=== PATIENT | male | born 1975 | race Caucasian/White ===

== ENCOUNTER → 2017-09-15 10:56 | Outpatient (CLI) | payer BC, SELFPAY ==
--- NOTE | 2017-09-15 10:57 | MR_ITS ---
MR elbow RT wo con HISTORY: Lifting injury with posttraumatic pain in the elbow, biceps tendon tear ITS.REASON: RT distal biceps tendon rupture ORDERING PHYSICIAN: Raman Pablo MD PATIENT AGE: 42 years Comparison: None TECHNIQUE: Standard multiplanar multiecho sequences are performed without contrast. FINDINGS: There is complete tear of the distal aspect of the biceps brachia tendon detached from the radial tubercle and retracted into the antecubital fossa. Increased T2 signal is present in the antecubital fossa consistent with underlying edema. No fracture or dislocation is evident. No obvious ligamentous injury. Small amount fluid is present in the elbow joint. The common extensor tendon and common flexor tendons have an unremarkable appearance. There is a moderate amount of edema in the subcutaneous tissues along the medial aspect of the elbow. IMPRESSION: Complete tear of the distal biceps tendon with retraction of the tendon with edema in the antecubital fossa and subcutaneous edema along the medial aspect of the elbow.
--- NOTE | 2017-09-15 13:54 | XR_ITS ---
XR chest 2V HISTORY: ITS.REASON: H/O NICOTINE DEPENDENCE ORDERING PHYSICIAN: Raman Pablo MD PATIENT AGE: 42 years COMPARISON: None FINDINGS: The cardiomediastinal silhouette and pulmonary vascularity are within normal limits. The lungs are clear without infiltrates, suspicious nodules, or pleural effusions. No acute bony abnormalities. IMPRESSION: Negative chest, no acute finding
[2017-09-15 14:12] LABS: Anion Gap 12.8 mEq/L (5-15); Blood Urea Nitrogen 11 mg/dL (7-18); Calcium 9.5 mg/dL (8.5-10.1); Carbon Dioxide 30 mmol/L (21.0-32.0); Chloride 105 mmol/L (98-107); Creatinine,Serum 1.12 mg/dL (0.70-1.30); Estimated Glomerular Filt Rate 72 ml/min (>60); GFR (African American) 87 ML/MIN (>60); Glucose 102 mg/dL (74-106); Potassium 4.8 mmoL/L (3.5-5.1); Sodium 143 mmol/L (136-145)
[2017-09-15 14:23] LABS: Basophils % 0.3 % (0.1-2.0); Eosinophils # 0.1 K/mm3 (0.0-0.4); Eosinophils % 0.8 % (0.1-12.0); Hematocrit 50.7 % (42.0-52.0); Hemoglobin 17.3 g/dL (14.1-18.0); Lymphocytes # 1.2 K/mm3 (0.7-4.5); Lymphocytes % 18.3 K/mm3 (10-50); Mean Corpuscular HGB Conc 34.2 g/dL (31.8-35.4); Mean Corpuscular Hemoglobin 32.5 pg (27.0-31.2); Mean Corpuscular Volume 95.1 fl (80-94); Mean Platelet Volume 8.1 fl (7.4-10.4); Monocytes # 0.3 K/mm3 (0.1-1.0); Monocytes % 4.4 % (1.7-9.3); Neutrophils # 5.2 K/mm3 (1.8-7.8); Neutrophils % 76.3 % (37.0-80.0); Platelet Count 210 K/mm3 (142-424); Red Blood Count 5.33 M/mm3 (4.60-6.20); Red Cell Distribution Width 12.9 % (11.5-17.5); White Blood Count 6.8 K/mm3 (4.8-10.8)
== END ==
PROVIDERS: Family Provider Family Medicine; PCP Family Medicine; Visit Provider Orthopaedic Surgery
DX: S46.219A Strain of muscle, fascia and tendon of other parts of biceps, unspecified arm, initial encounter (principal)
CPT/HCPCS: 36415; 71046; 73221; 80048; 85025; 93005

== ENCOUNTER 2020-08-13 06:49 | Emergency (ER) | payer BC, SELFPAY ==
[2020-08-13 06:51] VITALS: BP 147/93; PULSE 104; RESP 16; TEMP 37.2; O2SAT 98; BMI 30.1
--- NOTE | 2020-08-13 07:04 | XR_ITS ---
PROCEDURE INFORMATION: Exam: XR Left Foot Exam date and time: 08/13/2020 7:04 AM Age: 45 years old Clinical indication: Cellulitis; Toes; Left; Additional info: Redness of 2nd and 3rd toes TECHNIQUE: Imaging protocol: XR Left foot. Views: 3 or more views. COMPARISON: No relevant prior studies available. FINDINGS: Bones/joints: There is no evidence of acute cortical disruption or dislocation. Soft tissues: Unremarkable. IMPRESSION: No acute findings.
[2020-08-13 07:06] VITALS: BP 138/92; PULSE 90; O2SAT 96
--- NOTE | 2020-08-13 07:57 | HMH.EDGENADL ---
ED Disposition Clinical Impression: Envenomation Disposition: Home, Self-Care Condition on Discharge: Good Referrals: Horacio Correa MD [Primary Care Provider] - 3 days Time of Disposition: 08:23 - Critical Care Critical Care Time: No Attestation: On 08/13/20, the high probability of a clinically significant, sudden or life threatening deterioration of the following system(s) required my full and direct attention, intervention and personal management. The time I documented below is in addition to time spent performing reported procedures but includes the following listed in this critical care notation. Medical Decision Making - Medical Records Medical records reviewed: Yes: I reviewed the patient's medical records. - Travis Inquiry Pt receiving controlled substance: No Vital Signs: 08/13/20 06:51 08/13/20 07:06 Temperature 98.9 F Temperature Source Oral Pulse Rate 90 Pulse Rate [Radial] 104 H Respiratory Rate 16 Blood Pressure 138/92 H Blood Pressure [Right Arm] 147/93 H Blood Pressure Mean [Right Arm] 111 Blood Pressure Position [Right Arm] Sitting 02 Sat by Pulse Oximetry 98 96 Oxygen Delivery Method Room Air Orders (Tests/Meds): ORDERS Category Date Time Status XR foot LT min 3V Stat Exams 08/13/20 07:04 Taken - Radiology Data #1 Image(s): Foot/Toes Image Reviewed: Yes I reviewed the patient's radiology image Preliminary Findings: Normal/NAD Medical Decision Narrative: 45yo M presents for skin changes to his left second and third toe. Patient is in no acute distress on initial evaluation. There is some appreciable swelling and tenderness to the area. Lesion does not helga. There is no additional warmth as compared to the rest of the patient's foot. For these reasons, infection or cellulitis seems less likely. The patient has normal range of motion with minimal discomfort. We will try the patient on topical steroid to calm down local inflammation. Encouraged to follow-up with his PCP in 2 to 3 days for reevaluation. General Adult HPI - General Chief complaint: PAIN Stated complaint: middle toe on left foot swollen,red,painful Time Seen by Provider: 08/13/20 07:57 Mode of Arrival: Ambulatory Limitations: No Limitations Description of Symptoms (Recalled from ER Triage Doc. by RN): TO ED PER [employer] CAR WITH C/O REDNESS, SWELLING, PAIN LT 2ND AND 3RD TOES X 1 WEEK, WORSE LAST NIGHT. PT DENIES ANY NAUSEA, VOMITING, FEVER, CHILLS. - History of Present Illness HPI narrative: 45yo M without significant past medical history reports emergency department secondary to painful discoloration at the base of his second and third left toes. Changes been present for several days. Seems to be worsening. Complains of pain and swelling. Denies any injury. Denies any known bite or envenomation. Denies any fever, nausea/vomit/diarrhea. No previous similar episodes. Nothing improving, nothing tried prior to arrival. - Related Data Home Medications Medication Instructions Recorded Confirmed No Known Home Medications 02/23/18 02/23/18 Allergies Allergy/AdvReac Type Severity Reaction Status Date / Time No Known Allergies Allergy Verified 02/23/18 09:43 [facility] History - Hepatitis A Screen Drug use history?: No High risk sexual behaviors?: No History of sexually transmitted infection?: No Currently employed?: No Childcare worker?: No Do you have indoor plumbing?: Yes Do you have electricity?: Yes Attestation statement:: This patient has been screened for Hepatitis A risk factors. Medical History: Reports:: Hypertension Denies:: Cancer, Diabetes Mellitus Type 1, Diabetes Mellitus Type 2, Internal Pacemaker, Kidney Stones, MRSA, Seizures, Ulcer Other Medical History: Denies: Blood Transfusion Reaction, Other Laterality Cases: Right: Other Other Surgeries: Yes: No Previous Surgery. No: Pacemaker Amputation: No Fractures: No - Social History Smoking Status: Curr
[2020-08-13 08:31] VITALS: BP 132/78; PULSE 98; RESP 16; TEMP 36.6; O2SAT 98
== END 2020-08-13 08:32 | disposition home or self-care (01) ==
PROVIDERS: Emergency Provider Family Medicine; PCP Family Medicine
DX: R22.42 Localized swelling, mass and lump, left lower limb (principal); R23.8 Other skin changes; I10 Essential (primary) hypertension; F41.9 Anxiety disorder, unspecified; Z79.899 Other long term (current) drug therapy
CPT/HCPCS: 73630; 99281; 99282

== ENCOUNTER 2020-08-13 20:34 | Emergency (ER) | payer BC, SELFPAY ==
[2020-08-13 21:06] VITALS: BP 129/89; PULSE 89; RESP 18; TEMP 37.8; O2SAT 100; BMI 26.9
[2020-08-13 21:19] VITALS: BP 148/79; PULSE 85; O2SAT 95
[2020-08-13 21:28] LABS: Basophils % 0.5 % (0.1-2.0); Eosinophils % 0.7 % (0.1-12.0); Hematocrit 43.6 % (42.0-52.0); Hemoglobin 15.6 g/dL (14.1-18.0); Lymphocytes # 0.7 K/mm3 (0.7-4.5); Lymphocytes % 12.6 % (10-50); Mean Corpuscular HGB Conc 35.8 g/dL (31.8-35.4); Mean Corpuscular Hemoglobin 33.1 pg (27.0-31.2); Mean Corpuscular Volume 92.5 fl (80-94); Mean Platelet Volume 8.7 fl (7.4-10.4); Monocytes # 0.3 K/mm3 (0.1-1.0); Neutrophils # 4.5 K/mm3 (1.8-7.8); Neutrophils % 81.2 % (37.0-80.0); Platelet Count 111 K/mm3 (142-424); Red Blood Count 4.71 M/mm3 (4.60-6.20); Red Cell Distribution Width 12.8 % (11.5-17.5); White Blood Count 5.6 K/mm3 (4.8-10.8)
[2020-08-13 21:30] VITALS: PULSE 80; O2SAT 96
--- NOTE | 2020-08-13 21:33 | HMH.EDSKAF ---
ED Disposition Clinical Impression: Insect bite Qualifiers: Encounter type: initial encounter Site of insect bite: foot Laterality: left Qualified Code(s): S90.862A - Insect bite (nonvenomous), left foot, initial encounter; W57.XXXA - Bitten or stung by nonvenomous insect and other nonvenomous arthropods, initial encounter Disposition: Home, Self-Care Condition on Discharge: Good Instructions: DI for Insect Bites and Stings Additional Instructions: use meds and see pcp if sx persist Prescriptions: Minocycline HCl [Minocycline HCl 100mg Tab*] 100 mg PO BID #20 tab [id number] predniSONE [Prednisone 20mg Tab] 20 mg PO BID #10 tab [facility]: [id number] Referrals: Chandler Rubio MD [Primary Care Provider] - - Critical Care Critical Care Time: No Attestation: On 08/13/20, the high probability of a clinically significant, sudden or life threatening deterioration of the following system(s) required my full and direct attention, intervention and personal management. The time I documented below is in addition to time spent performing reported procedures but includes the following listed in this critical care notation. Medical Decision Making - Medical Records Medical records reviewed: Yes: I reviewed the patient's medical records. - Travis Inquiry Pt receiving controlled substance: No Vital Signs: 08/13/20 21:06 08/13/20 21:19 08/13/20 21:30 Temperature 100.1 F H Temperature Source Oral Pulse Rate 80 Pulse Rate [Right] 89 85 Respiratory Rate 18 Blood Pressure [Right Arm] 129/89 148/79 H Blood Pressure Mean [Right Arm] 102 102 Blood Pressure Source [Right Arm] Automatic Cuff Blood Pressure Position [Right Arm] Sitting 02 Sat by Pulse Oximetry 100 95 96 Oxygen Delivery Method Room Air - Lab Data Lab results reviewed: Yes: I reviewed the patient's lab results. Lab Results 08/13/20 21:15: WBC 5.6, RBC 4.71, Hgb 15.6, Hct 43.6, MCV 92.5, MCH 33.1 H, MCHC 35.8 H, RDW 12.8, Plt Count 111 L, MPV 8.7, Neut % (Auto) 81.2 H, Lymph % (Auto) 12.6, [place] % (Auto) 5.0, Eos % (Auto) 0.7, Baso % (Auto) 0.5, Neut # (Auto) 4.5, Lymph # (Auto) 0.7, [place] # (Auto) 0.3, Eos # (Auto) 0.0, Baso # (Auto) 0.0, ESR 43 H 08/13/20 21:15: Sodium 132 L, Potassium 3.3 L, Chloride 98, Carbon Dioxide 24, Anion Gap 13.3, BUN 8 L, Creatinine 1.10, Estimated Creat Clear 114, Estimated GFR 72, Est GFR ( Amer) 88, Glucose 121 H, Calcium 8.6, Total Bilirubin 0.9, AST 38, ALT 52, Alkaline Phosphatase 107, C-Reactive Protein 101.4 H, Total Protein 7.0, Albumin 4.1, Globulin 2.9, Albumin/Globulin Ratio 1.4, Procalcitonin 0.372 08/13/20 21:15: Lactate 0.7 Result diagrams: 08/13/20 21:15 08/13/20 21:15 Orders (Tests/Meds): ED MEDICATIONS Generic Name Dose Route Start Last Admin Trade Name Freq PRN Reason Stop Dose Admin Sodium Chloride 1,000 mls @ 999 mls/hr 08/13/20 21:15 08/13/20 21:21 Sod Chlor 0.9% 1000ml Bag IV 08/13/20 22:15 999 mls/hr .Q1H1M BETTY Administration Vancomycin HCl 1,500 mg/ 250 mls @ 125 mls/hr 08/13/20 22:01 08/13/20 22:12 Sodium Chloride IV 08/14/20 00:00 125 mls/hr ONCE ONE Administration Protocol Miscellaneous 1 each 08/13/20 22:15 08/13/20 22:02 Vancomycin Consult Request * 09/12/20 22:14 1 each CONSULT PHARMACY BETTY Administration Discontinued Medications Generic Name Dose Route Start Last Admin Trade Name Freq PRN Reason Stop Dose Admin Acetaminophen 1,000 mg 08/13/20 21:21 08/13/20 21:22 Acetaminophen 500mg Tab PO 08/13/20 21:22 1,000 mg ONCE ONE Administration Ketorolac Tromethamine 30 mg 08/13/20 21:15 08/13/20 21:22 Ketorolac 30mg/Ml Vial IV 08/13/20 21:16 30 mg ONCE ONE Administration Methylprednisolone Sodium Succinate 125 mg 08/13/20 21:23 08/13/20 21:27 Methylprednisolone Sod Succ 125mg Vial IV 08/13/20 21:24 125 mg ONCE ONE Ad
[2020-08-13 21:34] LABS: Alanine Aminotransferase 52 U/L (12-78); Albumin Level 4.1 g/dl (3.5-5.0); Albumin/Globulin Ratio 1.4 (1.1-1.8); Alkaline Phosphatase 107 U/L (38-126); Anion Gap 13.3 mEq/L (5-15); Aspartate Amino Transferase 38 U/L (17-59); Bilirubin,Total 0.9 mg/dl (0.2-1.3); Blood Urea Nitrogen 8 mg/dl (9-20); Calcium 8.6 mg/dl (8.4-10.2); Carbon Dioxide 24 mmol/L (22.0-30.0); Chloride 98 mmol/L (98-107); Creatinine Clearance Estimated 114 mL/min (50-200); Estimated Glomerular Filt Rate 72 ml/min (>60); GFR (African American) 88 ML/MIN (>60); Globulin 2.9 g/dL (1.3-3.2); Glucose 121 mg/dl (74-100); Potassium 3.3 mmoL/L (3.5-5.1); Sodium 132 mmol/L (136-145)
[2020-08-13 21:37] LABS: Lactic Acid 0.7 mmol/L (0.7-2.1)
[2020-08-13 21:39] LABS: C-Reactive Protein 101.4 mg/L (0-4)
[2020-08-13 21:53] LABS: Procalcitonin 0.372 ng/mL (0.0-2.0)
[2020-08-13 21:58] LABS: Erythrocyte Sedimentation Rate 43 mm/hr (0-15)
--- NOTE | 2020-08-13 22:01 | PC.NURSE ---
spoke with rita @ [facility] for vanc dosage
[2020-08-14 00:20] VITALS: BP 141/72; PULSE 84; RESP 16; TEMP 37.1; O2SAT 96
== END 2020-08-14 00:27 | disposition home or self-care (01) ==
LOC: UTC 20:42 → ER 20:54
PROVIDERS: Emergency Provider Emergency Medicine; PCP Family Medicine
DX: S90.862A Insect bite (nonvenomous), left foot, initial encounter (principal); W57.XXXA Bitten or stung by nonvenomous insect and other nonvenomous arthropods, initial encounter; I10 Essential (primary) hypertension; F17.210 Nicotine dependence, cigarettes, uncomplicated
CPT/HCPCS: 80053; 83605; 84145; 85025; 85651; 86140; 87040; 96365; 96366; 99282; 99283; J3370

== ENCOUNTER 2023-04-15 08:08 | Emergency (ER) | payer BC, SELFPAY ==
[2023-04-15 08:20] VITALS: BP 174/96; PULSE 81; RESP 18; TEMP 36.7; O2SAT 96; BMI 31.5
--- NOTE | 2023-04-15 08:37 | ED_ITS ---
Discharge Plan Disposition Patient Disposition: Home, Self-Care Condition: Good Prescriptions Prescriptions: New prednisone 20 mg tablet 20 mg PO BID Qty: 10 0RF cyclobenzaprine 5 mg tablet 5 mg PO HS Qty: 7 0RF Referrals Follow up/Referrals: Horacio Correa MD [Primary Care Provider] - See instructions Clinical Impressions Clinical Impression: Muscle strain Instructions Patient Instructions: DI for Muscle Strain [facility]charge [facility] General Stated complaint: left side pain Mode of Arrival: Ambulatory Source of Information: Patient Limitations: No Limitations Time Seen by Provider: 04/15/23 08:37 Description of Symptoms (Recalled from Triage Doc. by RN): Pt on mon was working on the house and twisted the wrong way. He has pain on left back side. HEENT Symptoms (Recalled from RN notes): Yes Resp Symptoms (Recalled from RN notes): No Skin Symptoms (Recalled from RN notes): No MS Symptoms (Recalled from RN notes): No Functional Status (Recalled from RN notes): n/a History of Present Illness Provider Complaint: 48 yr old male presents for left flank pain. pt states he was working under the sink and was laying in a bad position and since then the pain has been there. pt states pain worse with movement or cough Related Data Previous Rx's Medication Instructions Recorded cyclobenzaprine 5 mg tablet 5 mg PO HS #7 tabs 04/15/23 prednisone 20 mg tablet 20 mg PO BID #10 tabs 04/15/23 Allergies Allergy/AdvReac Type Severity Reaction Status Date / Time No Known Allergies Allergy Verified 04/15/23 08:35 Worker's Comp Is this a Worker's Comp case?: No [facility] Disclaimer: The information contained in this section may have been updated after the patient was seen, as this information can be updated by other users. Social History , [employer]STRUCTION EQUIPMENT OPERATOR) Smoking Status: Current every day smoker tobacco type: cigarettes packs per day: 1 alcohol intake: current substance use type: denies use current occupational status: employed Travel in the last 8 weeks: None ROS Obtained: Yes All systems reviewed & no additional complaints except as documented Constitutional Constitutional: Reports system reviewed and no additional complaints, except as documented Eyes Eyes: Reports system reviewed and no additional complaints, except as documented ENT Ears, Nose, Mouth, and Throat: Reports system reviewed and no additional complaints, except as documented Cardiovascular Cardiovascular: Reports system reviewed and no additional complaints, except as documented Respiratory Respiratory: Reports system reviewed and no additional complaints, except as documented Gastrointestinal Gastrointestingal: Reports system reviewed and no additional complaints, except as documented Genitourinary Male Genitourinary: Reports system reviewed and no additional complaints, except as documented Musculoskeletal Musculoskeletal: Reports system reviewed and no additional complaints, except as documented, Reports as per HPI, Reports back pain, Reports limited range of motion and Reports myalgias Integumentary/Breasts Skin/Breast: Reports system reviewed and no additional complaints, except as documented Neurologic Neurologic: Reports system reviewed and no additional complaints, except as documented Endocrine Endocrine: Reports system reviewed and no additional complaints, except as documented Hematologic/Lymphatic Henatologic/Lymphatic: Reports system reviewed and no additional complaints, except as documented Allergic/Immunologic Allergic/Immunologic: Reports system reviewed and no additional complaints, except as documented Physical Exam General General appearance: alert and in no apparent distress Head Head exam: atraumatic Eye Eye exam: Present normal appearance and PERRL ENT ENT exam: Present normal exam, normal oropharynx, mucous membranes moist and TM's normal bilaterally Respiratory Respiratory exam: Present normal lung sounds bilaterally Cardiovascular Cardiovascular exam: Present regular rate and normal rhythm Extremities Exam Extremities exam: Present normal inspection Back Exam Back exam: Present normal inspection and tenderness Back 1 view image: 2 1. tender Neurological Exam Neurological exam: Present alert and oriented X3 Skin Skin exam: Present warm and intact Medical Decision Making Medical Records Medical records reviewed: Yes I reviewed the patient's medical records. Travis Inquiry Pt receiving controlled substance: No Travis was queried for this patient: No Vital Signs: 04/15/23 08:20 Temperature 98.0 F Temperature Source Oral Pulse Rate [Right Radial] 81 Respiratory Rate 18 Blood Pressure [Right Arm] 174/96 H Blood Pressure Mean [Right Arm] 122 Blood Pressure Source [Right Arm] Automatic Cuff Blood Pressure Position [Right Arm] Sitting 02 Sat by Pulse Oximetry 96 Oxygen Delivery Method Room Air Orders (Tests/Meds): ED MEDICATIONS Generic Name Dose Route Start Last Admin Trade Name Freq PRN Reason Stop Dose Admin Dexamethasone Sodium Phosphate 4 mg 04/15/23 08:29 Dexamethasone 4mg/Ml 1ml Vial IM 04/15/23 08:30 ONCE ONE Ketorolac Tromethamine 15 mg 04/15/23 08:29 Ketorolac 30mg/Ml Vial IM 04/15/23 08:30 ONCE ONE
[2023-04-15] MEDS: KETOROLAC 30MG/ML VIAL 15 MG IM (08:41)
[2023-04-15] MEDS: DEXAMETHASONE 4MG/ML 1ML VIAL 4 MG IM (08:41)
[2023-04-15 09:02] VITALS: BP 174/96; PULSE 81; RESP 18; TEMP 36.7; O2SAT 96
== END 2023-04-15 09:01 | disposition home or self-care (01) ==
PROVIDERS: Emergency Provider Nurse Practitioner Family; PCP Family Medicine
DX: S39.012A Strain of muscle, fascia and tendon of lower back, initial encounter (principal); F17.210 Nicotine dependence, cigarettes, uncomplicated; X50.1XXA Overexertion from prolonged static or awkward postures, initial encounter
CPT/HCPCS: 96372; 99204; 99212; G0463

== ENCOUNTER 2024-04-12 10:56 | Outpatient (CLI) | payer BC, SELFPAY ==
[2024-04-12 17:34] LABS: Alanine Aminotransferase 41 U/L (12-78); Albumin/Globulin Ratio 2.3 (1.1-1.8); Alkaline Phosphatase 87 U/L (38-126); Anion Gap 11.3 mEq/L (5-15); Aspartate Amino Transferase 28 U/L (17-59); Bilirubin,Total 0.5 mg/dl (0.2-1.3); Blood Urea Nitrogen 17 mg/dl (9-20); Calcium 9.8 mg/dl (8.4-10.2); Carbon Dioxide 27 mmol/L (22.0-30.0); Chloride 104 mmol/L (98-107); Cholesterol 249 mg/dl (140-200); Estimated Glomerular Filt Rate 71 ml/min (>60); GFR (African American) 86 ML/MIN (>60); Globulin 2.2 g/dL (1.3-3.2); Glucose 89 mg/dl (74-100); HDL Cholesterol 50 mg/dl (40-60); Potassium 4.3 mmoL/L (3.5-5.1); Sodium 138 mmol/L (136-145); Total Protein,Serum 7.2 g/dl (6.3-8.2); Triglycerides 288 mg/dl (30-150); VLDL Cholesterol 58 mg/dL (0-40)
[2024-04-12 17:45] LABS: Direct LDL Cholesterol 148.77 mg/dL (100-129)
[2024-04-12 18:04] LABS: Thyroid Stimulating Hormone 1.68 uIU/mL (0.465-4.68)
== END 2024-04-12 23:59 | disposition home or self-care (01) ==
LOC: LAB.DROPOF 04-13 10:56
PROVIDERS: PCP Nurse Practitioner Family; Visit Provider Nurse Practitioner Family
DX: H02.61 Xanthelasma of right upper eyelid (principal); I10 Essential (primary) hypertension; F17.210 Nicotine dependence, cigarettes, uncomplicated
CPT/HCPCS: 80053; 80061; 83735; 84443